=== PATIENT | female | born 1990 | race Caucasian/White ===

== ENCOUNTER 2020-02-29 15:10 | Emergency (ER) | payer SELFPAY ==
[~2020-02-29] VITALS: Ht 152.4 cm; Wt 52.2 kg
[2020-02-29 15:48] VITALS: BP 134/77
--- NOTE | 2020-02-29 15:50 | NUR ---
CALLED SENIOR MANAGER QUAL[employer]URANCE GONZALEZ
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
== END 2020-02-29 19:27 | disposition home or self-care (01) ==
LOC: ER 15:26
DX: M25.562 Pain in left knee (principal)
CPT/HCPCS: 73564-TC